=== PATIENT | male | born 1990 | race Caucasian/White ===

== ENCOUNTER 2016-08-29 09:31 | Emergency (ER) | payer OTHER ==
[~2016-08-29] VITALS: Ht 172.7 cm; Wt 87.1 kg
[~2016-08-29 09:31] MED LIST: AMOXIL500 MG PO; KEFLEX500 MG PO; NAPROXEN500 MG PO; OXYCONTIN10 MG PO; PERCOCET 325 MG1 TA2 PO
--- NOTE | 2016-08-29 09:38 | ED ANKLE/FOOT INJURY COMPLAINT ---
History of Present Illness General Chief Complaint: Foot or Ankle Injury Stated Complaint: L FT INJURY Source: patient, old records Exam Limitations: no limitations Vital Signs & Intake/Output Vital Signs & Intake/Output Vital Signs Date Time Temp Pulse Resp B/P B/P Pulse O2 O2 Flow FiO2 Mean Ox Delivery Rate 08/29 1008 61 20 138/85 99 Room Air Allergies Coded Allergies: NO KNOWN ALLERGIES (08/29/16) Reconcile Medications Oxycodone HCl 10 MG TABLET 1 TAB PO 4XDP PRN PAIN (Reported) Triage Nurses Notes Reviewed? yes Occurred: just prior to arrival Duration: day(s): (1), constant Timing: recent history Severity: moderate, severe Severity Numbers: 10 Pain/Injury Location: Left: 4th toe. Associated Symptoms: none HPI: 26-year-old male with history of chronic leg pain for which he is on Percocet presents to the ER for evaluation complaining of left fourth and fifth toe pain after he states he tripped while walking down concrete stairs striking his toe against a banister. There is no prodromal dizziness or lightheadedness prior to the fall. He now presents complaining of moderate to severe left toe pain. He denies any numbness or tingling there is no other toe foot or ankle injury. He took his pain medication prior to arrival without improvement (ASHANTI LAZCANO) Past History Travel History Traveled to [place] past 21 day No Medical History Any Pertinent Medical History? see below for history Neurological: NONE EENT: NONE Cardiovascular: NONE Respiratory: NONE Gastrointestinal: NONE Hepatic: NONE Renal: NONE Musculoskeletal: fracture, L LEG FX/HDWE CHRONIC LEG PAIN Psychiatric: NONE Endocrine: NONE Blood Disorders: NONE Cancer(s): NONE WELDER FITTER/Reproductive: NONE Surgical History Surgical History: LEFT LEG HARDWARE Psychosocial History What is your primary language Danish Family History Hx Contributory? No (ASHANTI LAZCANO) Review of Systems Review of Systems Constitutional: Reports: see HPI. All Other Systems: Reviewed and Negative Comments Review of systems: See HPI, All other systems negative. Constitutional, no chills no fever, no malaise no weight loss HEENT: No visual changes no sore throat no congestion, no ear pain Cardiovascular: No chest pain , no palpitation , no orthopnea Skin: no rashes, no change in skin Respiratory: No dyspnea no cough no sputum no hemoptysis GI: No nausea no vomiting, no diarrhea, no bloating/constipation : No dysuria No hematuria, no frequency, no discharge Muscle skeletal: No joint pain, no joint swelling, no back pain, no neck pain, Neurologic: No numbness no confusion, no headache Psych: No stress no depression,. Heme/endocrine: No bruising no bleeding Immunology: No lymphadenopathy (ASHANTI LAZCANO) Physical Exam Physical Exam General Appearance: no apparent distress, alert, awake Leg/Knee/Thigh Left: normal range of motion Comments: Well-developed well-nourished patient in no apparent distress. HEENT: Atraumatic, extraocular motion intact Neck: Supple, FROM Back: FROM Cardiovascular: Regular rate and rhythms Respiratory: No respiratory distress. Patient speaking in full complete sentences. Breath sounds clear to auscultation bilaterally: NO W/R/R Upper Extremities: full range of motion Hip/Pelvis: Atraumatic/Stable. FROM. Knee: Atraumatic/stable. FROM. No joint swelling, no effusion. No laxity. No pain with ROM Leg: Atraumatic. Nontender. No edema, 5 out of 5 strength in the lower extremity, normal dorsiflexion of great toe bilaterally, gross sensation is intact Ankle/Foot: THERE is a superficial 1cm linear laceration to the interweb space between the 3rd and 4th toes, no active bleeding, superficial abrasions to the dorsal l 4th toe, no deformity, the rest of the foot is atraumatic and nontender , FROM of all toes and ankle. No swelling, no effusion. No laxity on exam Pulses: Normal/equal DP/PT pulses bilaterally. Brisk cap refill Neuro: awake, alert, and oriented to person, place and time. There were no obvious focal neurologic abnormalities. Skin: Warm & dry;No appreciable rash on exposed skin Psych: Mood affect normal, normal memory normal judgment. (ASHANTI LAZCANO) Progress Differential Diagnosis: fracture, dislocation, sprain, contusion Plan of Care: Orders Procedure Date/time Status Durable Medical Equipment 08/29 1026 Active X-ray ordered patient's medication Motrin in triage I discussed with the patient at length all of their results. The wound was sterilely irrigated normal saline Betadine and peroxide. Dermabond was applied I had an extensive conversation regarding need for close follow up with their primary care physician this week as well as return precautions. I answered all of their questions, they feel comfortable with the plan and follow-up care. I discussed with the patient/family the medications that they will receive. I gave them signs and symptoms that could indicate an adverse reaction. I have advised them to limit their activities until they can see how they respond to the medication. (ASHANTI LAZCANO) Diagnostic Imaging: Viewed by Me: Radiology Read. Discussed w/RAD: Radiology Read. Radiology Impression: PATIENT: UMRIEL MURPHY PRESENT AGE: 26 PATIENT ACCOUNT NO: [id number] : 89 LOCATION: [facility] ORDERING PHYSICIAN: ASHANTI POTTER SERVICE DATE: 08/29/16 EXAM TYPE: RAD - XRY- TOES, LEFT EXAMINATION: XR TOES, LEFT CLINICAL INFORMATION: Status post fall and laceration. COMPARISON: None TECHNIQUE: 3 views of the left toes were obtained. FINDINGS: Bone mineral density is maintained without evidence of fracture or dislocation. There is deformity of the head of the third and fourth metatarsals possibly posttraumatic or surgical in nature. No focal osseous lesions are seen. Joint space is maintained without productive or erosive changes. There is a small amount of air between the third and fourth toes which may be in the soft tissues and related to the patient's laceration. Clinical correlation recommended. There are postsurgical changes involving the distal tibia. IMPRESSION: No acute fracture or dislocation is identified. DICTATED BY: MIRELA CHILD MD DATE/TIME DICTATED:08/29/161021 ROENTGENOLOGIST:CHANDLER DATE/ TIME TRANSCRIBED:08/29/161021 CONFIDENTIAL, DO NOT COPY WITHOUT APPROPRIATE AUTHORIZATION. <Electronically signed in Other Vendor System> SIGNED BY: MIRELA CHILD MD 08/29/16 1035 (ASHANTI LAZCANO) Departure Departure Time of Disposition: 1012 Disposition: HOME OR SELF CARE Condition: Stable Clinical Impression Primary Impression: Toe laceration Referrals: LISANDRA RAJPUT MD (PCP/Family) Additional Instructions: The dermabond will dissolve on its own keep area clean and covered, rest, ice, continue taking your pain medication as prescribed. follow up with your pmd or return to the er with any concerns or signs of infection: redness, warmth, swelling discharge fever or chills Departure Forms: Customer Survey General Discharge Information (ASHANTI LAZCANO) PA/ELECTRICAL ENGINEER Co-Sign Statement Statement: ED Attending supervision documentation- I saw and evaluated the patient. I have also reviewed all the pertinent lab results and diagnostic results. I agree with the findings and the plan of care as documented in the PA's/ELECTRICAL ENGINEER's documentation. x I have reviewed the ED Record and agree with the PA's/ELECTRICAL ENGINEER's documentation. [] Additions or exceptions (if any) to the PAs/ELECTRICAL ENGINEER's note and plan are summarized below: [] (CORDELIA HOUSER,KAELYN) Procedures Laceration/Wound Repair Laceration/Wound Repair: Wound Location: lower extremity (l 4th toe interweb space) Wound's Depth, Shape: linear, superficial Wound Length (cm): 1 Wound Explored: clean, no foreign body removed, irrigated extensively Irrigated w/ Saline (ccs): 100 Betadine Prep? Yes Wound Repaired With: Dermabond Sterile Dressing Applied: Yes Tetanus Status: up to date (ASHANTI LAZCANO)
[2016-08-29] MEDS ORDERED: OXYCODONE HCL10 M2 PO (09:51)
[2016-08-29 10:08] VITALS: BP 138/85
--- NOTE | 2016-08-29 10:35 | RADIOLOGY REPORT ---
EXAMINATION: XR TOES, LEFT CLINICAL INFORMATION: Status post fall and laceration. COMPARISON: None TECHNIQUE: 3 views of the left toes were obtained. FINDINGS: Bone mineral density is maintained without evidence of fracture or dislocation. There is deformity of the head of the third and fourth metatarsals possibly posttraumatic or surgical in nature. No focal osseous lesions are seen. Joint space is maintained without productive or erosive changes. There is a small amount of air between the third and fourth toes which may be in the soft tissues and related to the patient's laceration. Clinical correlation recommended. There are postsurgical changes involving the distal tibia. IMPRESSION: No acute fracture or dislocation is identified.
== END 2016-08-29 10:29 ==
LOC: ERH 09:31
DX: S91.312A Laceration without foreign body, left foot, initial encounter (principal); W22.09XA Striking against other stationary object, initial encounter; Y92.9 Unspecified place or not applicable; Y93.9 Activity, unspecified
CPT/HCPCS: 73660-LT